=== PATIENT | female | born 1965 | race Caucasian/White ===

== ENCOUNTER 2024-01-23 09:37 | Outpatient (CLI) | payer OTHER, SELFPAY | END 2024-01-23 09:38 | disposition home or self-care (01) | LOC: NFLDREF 02-12 07:10 | PROVIDERS: PCP Physician Assistant Medical; Referring Provider Physician Assistant Medical; Visit Provider Physician Assistant Medical | DX: Z13.9 Encounter for screening, unspecified (principal) | CPT/HCPCS: 80053; 80061; 84443 ==